=== PATIENT | male | born 1980 | race Caucasian/White ===

== ENCOUNTER 2023-09-28 17:03 | Inpatient (IN) ==
[2023-09-28] MEDS: Lactated Ringers 1000 ml BAG 1,000 ML IV ONE (18:06)
[2023-09-28] MEDS: Ondansetron 4 mg VIAL 2 MG/ML 2 ml VIAL IV ONE ×2 (18:12→21:58)
[2023-09-28] MEDS: Azithromycin 500 mg/250 ml NS 500 MG/250 ML BAG IVPB ONE (19:06)
[2023-09-28 19:08] LABS: Albumin 3.2 g/dL (3.2-5.2); Albumin/Globulin Ratio 1.3 (1-3); C Reactive Protein 237.98 mg/L (<8.01); Calcium 7.8 mg/dL (8.6-10.3); Creatinine, Serum 0.79 mg/dL (0.67-1.17); Globulin 2.4 g/dL (2-4); Potassium 2.9 mmol/L (3.5-5.0); Total Bilirubin 1.5 mg/dL (0.2-1.0); Total Protein 5.6 g/dL (6.4-8.9); eGFR CKD-EPI 111.6 (>60)
[2023-09-28 20:33] LABS: ABS Lymphocytes 1.3 10^3/uL (1.0-4.8); ABS Monocytes 0.3 10^3/uL (0.0-1.1); ABS Neutrophils 1.4 10^3/uL (1.5-7.6); Eosinophil % 0.1 %; Hematocrit 29.1 % (38-53); Hemoglobin 10.3 g/dL (13.2-16.3); Lymphocyte % 42.7 %; Mean Corpuscular Hemoglobin 31.7 pg (27-33); Mean Corpuscular Hgb Conc 35.3 g/dL (31-36); Mean Corpuscular Volume 89.9 fL (80-97); Mean Platelet Volume 9.7 fL (7.5-11.2); Nucleated Red Blood Cells % 0.1 %/100WBC (0.0-0.8); Platelet Count 36 10^3/uL (150-450); RBC Morphology Normal (Normal); Red Blood Count 3.24 10^6/uL (4.06-5.63); Red Cell Distribution Width 13.1 % (12-17)
[2023-09-28] MEDS: Morphine 4 MG/ML VIAL (1 ml) IV ONE (21:59)
[2023-09-29] MEDS: Acetaminophen IV 1 GM/100ML 1,000 MG/100 ML BAG IV PRN (01:56)
[2023-09-29] MEDS: Morphine 2 MG/ML SYRINGE IV PRN (05:17)
[2023-09-29 08:16] LABS: ABS Lymphocytes 1.2 10^3/uL (1.0-4.8); ABS Monocytes 0.5 10^3/uL (0.0-1.1); ABS Neutrophils 1.5 10^3/uL (1.5-7.6); ABS Nucleated RBC 0.01 10^3/ul; Eosinophil % 0.1 %; Hematocrit 29.8 % (38-53); Hemoglobin 10.4 g/dL (13.2-16.3); Lymphocyte % 38.2 %; Mean Corpuscular Hemoglobin 31.5 pg (27-33); Mean Corpuscular Hgb Conc 34.9 g/dL (31-36); Mean Corpuscular Volume 90.3 fL (80-97); Mean Platelet Volume 10.4 fL (7.5-11.2); Nucleated Red Blood Cells % 0.2 %/100WBC (0.0-0.8); Platelet Count 44 10^3/uL (150-450); Red Cell Distribution Width 13.7 % (12-17); White Blood Count 3.3 10^3/uL (3.6-10.2)
[2023-09-29 09:00] LABS: Calcium 7.9 mg/dL (8.6-10.3); Creatinine, Serum 0.79 mg/dL (0.67-1.17); Magnesium 1.8 mg/dL (1.9-2.7); Potassium 3.5 mmol/L (3.5-5.0); eGFR CKD-EPI 111.6 (>60)
[2023-09-29] MEDS: Potassium Chlor 20 meq TAB.ER PO ONE (10:05)
[2023-09-29] MEDS: Lactated Ringers 1000 ml BAG 1,000 ML IV SCH (14:37)
[2023-09-29] MEDS: Ondansetron 4 mg VIAL 2 MG/ML 2 ml VIAL IV PRN (16:10)
[2023-09-29] MEDS: Ondansetron 4 mg VIAL 2 MG/ML 2 ml VIAL ONE (16:56)
[2023-09-29] MEDS: Azithromycin 500 mg/250 ml NS 500 MG/250 ML BAG IVPB SCH (19:54)
[2023-09-30 05:16] LABS: ABS Lymphocytes 1.4 10^3/uL (1.0-4.8); ABS Monocytes 0.5 10^3/uL (0.0-1.1); ABS Neutrophils 1.8 10^3/uL (1.5-7.6); ABS Nucleated RBC 0.01 10^3/ul; Eosinophil % 0.1 %; Hematocrit 25.7 % (38-53); Hemoglobin 8.6 g/dL (13.2-16.3); Lymphocyte % 36.1 %; Mean Corpuscular Hemoglobin 30.5 pg (27-33); Mean Corpuscular Hgb Conc 33.7 g/dL (31-36); Mean Corpuscular Volume 90.7 fL (80-97); Mean Platelet Volume 9.7 fL (7.5-11.2); Nucleated Red Blood Cells % 0.2 %/100WBC (0.0-0.8); Platelet Count 64 10^3/uL (150-450); Red Blood Count 2.83 10^6/uL (4.06-5.63); Red Cell Distribution Width 13.8 % (12-17); White Blood Count 3.7 10^3/uL (3.6-10.2)
[2023-09-30 05:26] LABS: Calcium 7.8 mg/dL (8.6-10.3); Creatinine, Serum 0.87 mg/dL (0.67-1.17); Magnesium 1.9 mg/dL (1.9-2.7); Potassium 3.3 mmol/L (3.5-5.0); eGFR CKD-EPI 108.4 (>60)
[2023-09-30] MEDS: Potassium Chlor 20 meq TAB.ER PO ONE (09:41)
[2023-09-30] MEDS: Magnesium Sulfate 2 gm BAG 2 GM/50 ML BAG IVPB ONE (09:41)
[2023-09-30] MEDS ORDERED: Acetaminophen IV 1 GM/100ML 1,000 MG/100 ML BAG IV PRN (15:15)
[2023-09-30] MEDS: cefTRIAXone 1 gm/50 mL D5W 1 GM/50 ML BAG IV SCH (15:15)
[2023-09-30] MEDS: Lactated Ringers 1000 ml BAG 1,000 ML IV SCH (15:51)
[2023-09-30 16:01] LABS: C Reactive Protein 257.77 mg/L (<8.01); Direct Bilirubin 0.3 mg/dL (0.03-0.18); Indirect Bilirubin 0.7 mg/dL (0.3-1.0)
[2023-09-30] MEDS: Acetaminophen IV 1 GM/100ML 1,000 MG/100 ML BAG IV PRN (16:15)
[2023-10-01 06:02] LABS: Calcium 7.7 mg/dL (8.6-10.3); Creatinine, Serum 0.79 mg/dL (0.67-1.17); Magnesium 2.2 mg/dL (1.9-2.7); Potassium 3.6 mmol/L (3.5-5.0); eGFR CKD-EPI 111.6 (>60)
[2023-10-01 07:28] LABS: ABS Lymphocytes 1.6 10^3/uL (1.0-4.8); ABS Monocytes 0.4 10^3/uL (0.0-1.1); ABS Neutrophils 1.4 10^3/uL (1.5-7.6); Eosinophil % 0.3 %; Hematocrit 25.4 % (38-53); Hemoglobin 8.8 g/dL (13.2-16.3); Lymphocyte % 48.3 %; Mean Corpuscular Hemoglobin 31.4 pg (27-33); Mean Corpuscular Hgb Conc 34.6 g/dL (31-36); Mean Corpuscular Volume 90.7 fL (80-97); Mean Platelet Volume 9.5 fL (7.5-11.2); Nucleated Red Blood Cells % 0.1 %/100WBC (0.0-0.8); Platelet Count 88 10^3/uL (150-450); Red Cell Distribution Width 13.7 % (12-17); White Blood Count 3.4 10^3/uL (3.6-10.2)
[2023-10-01] MEDS: cefTRIAXone 2 gm/50 mL D5W 2 GM/50 ML BAG IV SCH (10:45)
[2023-10-01] MEDS: Lactated Ringers 1000 ml BAG 1,000 ML IV SCH (13:10)
[2023-10-01 15:43] LABS: Anaplasma phagocytophilum Negative (Negative); B. miyamotoi PCR, B Negative (Negative); Babesia divergens/MO-1 Negative (Negative); Babesia ducani Negative (Negative); Ehrlichia chaffeensis Negative (Negative); Ehrlichia ewingii/canis Negative (Negative); Ehrlichia muris eauclairensis Negative (Negative)
[2023-10-02 06:57] LABS: ABS Lymphocytes 1.4 10^3/uL (1.0-4.8); ABS Monocytes 0.4 10^3/uL (0.0-1.1); ABS Neutrophils 1.2 10^3/uL (1.5-7.6); Eosinophil % 0.6 %; Hematocrit 24.7 % (38-53); Hemoglobin 8.5 g/dL (13.2-16.3); Lymphocyte % 46.2 %; Mean Corpuscular Hemoglobin 31.1 pg (27-33); Mean Corpuscular Hgb Conc 34.5 g/dL (31-36); Mean Corpuscular Volume 90.1 fL (80-97); Mean Platelet Volume 9.2 fL (7.5-11.2); Nucleated Red Blood Cells % 0.1 %/100WBC (0.0-0.8); Platelet Count 125 10^3/uL (150-450); Red Blood Count 2.74 10^6/uL (4.06-5.63); Red Cell Distribution Width 13.9 % (12-17)
[2023-10-02 07:24] LABS: Albumin 2.8 g/dL (3.2-5.2); Albumin/Globulin Ratio 1.1 (1-3); Calcium 7.8 mg/dL (8.6-10.3); Creatinine, Serum 0.77 mg/dL (0.67-1.17); Globulin 2.6 g/dL (2-4); Magnesium 2.1 mg/dL (1.9-2.7); Potassium 3.8 mmol/L (3.5-5.0); Total Bilirubin 0.7 mg/dL (0.2-1.0); Total Protein 5.4 g/dL (6.4-8.9); eGFR CKD-EPI 112.5 (>60)
[2023-10-02] MEDS: Lactated Ringers 1000 ml BAG 1,000 ML IV SCH (16:59)
[2023-10-03 07:36] LABS: Hematocrit 27.1 % (38-53); Hemoglobin 9.1 g/dL (13.2-16.3); Mean Corpuscular Hemoglobin 30.2 pg (27-33); Mean Corpuscular Hgb Conc 33.4 g/dL (31-36); Mean Corpuscular Volume 90.3 fL (80-97); Platelet Count 183 10^3/uL (150-450); Red Cell Distribution Width 13.9 % (12-17); White Blood Count 3.1 10^3/uL (3.6-10.2)
[2023-10-03 08:13] LABS: Albumin 3.1 g/dL (3.2-5.2); Calcium 8.2 mg/dL (8.6-10.3); Creatinine, Serum 0.61 mg/dL (0.67-1.17); Magnesium 2.3 mg/dL (1.9-2.7); Potassium 4.3 mmol/L (3.5-5.0); Total Bilirubin 0.6 mg/dL (0.2-1.0); Total Protein 6.1 g/dL (6.4-8.9); eGFR CKD-EPI 120.7 (>60)
[2023-10-03] MEDS ORDERED: Azithromycin 500 mg/250 ml NS 500 MG/250 ML BAG IVPB SCH ×2 (09:00→16:00)
[2023-10-03 14:17] VITALS: BP 115/73
[2023-10-03] MEDS: Azithromycin 500 mg/250 ml NS 500 MG/250 ML BAG IVPB SCH (14:21)
== END 2023-10-03 16:00 | disposition home or self-care (01) | DRG 724 ==
LOC: ED 17:03 → EDHOLD 17:03 → OBSVTOIN 21:51 → SUATTDRO 21:51 → SSU 09-29 00:44
PROVIDERS: ADMIT Internal Medicine; ATTEND Internal Medicine